=== PATIENT | male | born 1935 | race Asian ===

== ENCOUNTER 2017-11-06 16:39 | Emergency (ER) | payer OTHER ==
[~2017-11-06] VITALS: Ht 170.2 cm; Wt 77.7 kg
[2017-11-06 18:14] LABS: BASOPHIL % 0.1 % (0-2); PLATELET COUNT 202 x10^3mcL (130-400); RED CELL DISTRIBUTION WIDTH 13.8 % (11.5-14.5)
[2017-11-06 18:17] LABS: CALCIUM 8.7 mg/dL (8.5-10.1); CARBON DIOXIDE 28.1 mmol/L (21-32); CHLORIDE SERUM 104 mmol/L (98-107); CREATININE SERUM 0.9 mg/dL (0.7-1.3); GLUCOSE SERUM 109 mg/dL (74-106); POTASSIUM SERUM 3.8 mmol/L (3.5-5.1); SODIUM SERUM 140 mmol/L (136-145)
[2017-11-06 18:22] LABS: ALBUMIN 3.2 g/dL (3.4-5.0); ALKALINE PHOSPHATASE 59 U/L (46-116); ALT/SGPT 28 U/L (16-63); AST/SGOT 24 U/L (15-37); BILIRUBIN TOTAL 0.95 mg/dL (0.20-1.00); TOTAL PROTEIN, SERUM 7.2 g/dL (6.4-8.2)
[2017-11-06 19:03] VITALS: BP 123/72
== END 2017-11-06 19:03 | disposition home or self-care (01) ==
LOC: ED 16:39
PROVIDERS: Emergency Medicine
DX: L03.113 Cellulitis of right upper limb (principal); I10 Essential (primary) hypertension; J45.909 Unspecified asthma, uncomplicated
CPT/HCPCS: 90714; J2543

== ENCOUNTER 2018-06-30 16:51 | Emergency (ER) | payer OTHER ==
[~2018-06-30] VITALS: Ht 170.2 cm; Wt 78.0 kg
[2018-06-30 17:03] VITALS: Ht 170.2 cm; Wt 78.0 kg
[2018-06-30 20:55] LABS: BASOPHIL % 0.3 % (0-2); PLATELET COUNT 200 x10^3mcL (130-400); RED CELL DISTRIBUTION WIDTH 12.5 % (11.5-14.5)
[2018-06-30 21:01] LABS: CALCIUM 8.5 mg/dL (8.5-10.1); CARBON DIOXIDE 30.7 mmol/L (21-32); CHLORIDE SERUM 104 mmol/L (98-107); CREATININE SERUM 1.2 mg/dL (0.7-1.3); GLUCOSE SERUM 106 mg/dL (74-106); POTASSIUM SERUM 3.4 mmol/L (3.5-5.1); SODIUM SERUM 141 mmol/L (136-145)
[2018-06-30 21:16] LABS: ALKALINE PHOSPHATASE 63 U/L (46-116); ALT/SGPT 20 U/L (16-63); AST/SGOT 21 U/L (15-37); TOTAL PROTEIN, SERUM 7.6 g/dL (6.4-8.2)
[2018-06-30 21:19] LABS: ALBUMIN 3.2 g/dL (3.4-5.0)
[2018-06-30 21:55] VITALS: BP 136/81
== END 2018-06-30 21:55 | disposition home or self-care (01) ==
LOC: ED 16:51
PROVIDERS: Emergency Medicine
DX: L03.115 Cellulitis of right lower limb (principal); J45.909 Unspecified asthma, uncomplicated; I10 Essential (primary) hypertension
CPT/HCPCS: J2543; Q0092

== ENCOUNTER 2018-07-08 19:22 | Inpatient (IN) | payer OTHER ==
[~2018-07-08] VITALS: Ht 170.2 cm; Wt 78.6 kg
--- NOTE | 2018-07-08 20:40 | NUR ---
PT TO ED FOR EVAL OF CELLULITIS TO R LOWER EXTREMITY. PT WAS SEEN LAST WEEK.FOR SAME COMPLAINT AND DID NOT FOLLOW UP PMD. PER DAUGHTER LOWER EXTREMITY HAS BECOME WORSE WITH BLOOD FILLED BLISTER AT [facility] OF REDNESS. NO TRAUMA OR INJURY. SKIN WARM AND PAIFUL TO TOUCH. PT AWAKE AND ALERT. BREATHING EVEN UNLABORED. NO DISTRESS.
[2018-07-08 20:54] LABS: BASOPHIL % 0.5 % (0-2); PLATELET COUNT 218 x10^3mcL (130-400); RED CELL DISTRIBUTION WIDTH 13.4 % (11.5-14.5)
--- NOTE | 2018-07-08 21:00 | NUR ---
Pt has presented for eval of R lower leg pain and swelling; family sts pt had been seen here last week, was instructed to f/u PMD, but pt was unable to; pt has been seen by provider, orders rec'd
[2018-07-08 21:03] LABS: CALCIUM 8.6 mg/dL (8.5-10.1); CARBON DIOXIDE 30.2 mmol/L (21-32); CHLORIDE SERUM 106 mmol/L (98-107); CREATININE SERUM 1.1 mg/dL (0.7-1.3); GLUCOSE SERUM 110 mg/dL (74-106); POTASSIUM SERUM 3.9 mmol/L (3.5-5.1); SODIUM SERUM 142 mmol/L (136-145)
[2018-07-08 21:05] LABS: ALBUMIN 3.4 g/dL (3.4-5.0); ALKALINE PHOSPHATASE 70 U/L (46-116); ALT/SGPT 13 U/L (16-63); AST/SGOT 22 U/L (15-37); BILIRUBIN TOTAL 0.39 mg/dL (0.20-1.00); TOTAL PROTEIN, SERUM 7.8 g/dL (6.4-8.2)
--- NOTE | 2018-07-08 21:39 | NUR ---
Labs drawn/sent; IV access initiated, and IV fluids infusing well, US completed. Waiting on further eval
[2018-07-08] MEDS ORDERED: LASIX40 MG PO (22:11)
[2018-07-08] MEDS ORDERED: SPIRIVA18 MC1 HHN (22:12)
[2018-07-08] MEDS ORDERED: SYMBICORT1 AE3 (22:13)
--- NOTE | 2018-07-08 22:14 | NUR ---
Admit pending; family updated regarding admit
[2018-07-08 22:16] LABS: CHOLESTEROL/HDL RATIO 3.1; MAGNESIUM 2.4 mg/dL (1.8-2.4); PHOSPHOROUS 3.2 mg/dL (2.5-4.9)
[2018-07-08 22:20] LABS: T3 TOTAL 1.39 ng/mL
[2018-07-08 22:26] LABS: FREE T4 0.88 ng/dL (0.76-1.46); FREE THYROXINE INDEX 2.8 ug/dL (1.4-4.5); T4(THYROXINE) 9.1 ug/dL (4.7-13.3)
--- NOTE | 2018-07-08 22:40 | NUR ---
FLOOR NURSE REQUESTED PT TO GO TO FLOOR, FAMILY MEMBER ACCOMAPANING; PT WENT TO FLOOR WITH NS AND ZOSYN INFUSING; TRANSPORTED BY EMT
--- NOTE | 2018-07-08 22:50 | NUR ---
RECEIVED PT FROM ED VIA [facility], CAME IN DUE TO RLE WOUND AND SWELLING. PER PT'S DAUGHTER, PT WAS PRESCRIBED W/ ORAL [employer]TIBIOT[employer] BUT WAS NOT WORKING. AAOX4. DENIES HEADACHE/DIZZINESS. ABLE TO FOLLOW COMMANDS. NO SOB NOTED, LUNG SOUNDS CTA. DENIES CHEST PAIN/PRESSURE. DENIES ABDOMINAL DISCOMFORT. C/O 5/10 RLE PAIN. W/ BLISTER IN THE MIDDLE OF THE REDDENED AREA ON RLE. RLE IS WARM TO TOUCH. IV SITE ON THE LFA IS PATENT AND INTACT, RECEIVED PT FROM ED W/ ZOSYN ONGOING. SIDE RAILS UPX2. CALL LIGHT ON REACH. DAUGHTER AT BEDSIDE. PRIMARY NURSE DAMASO AT BEDSIDE FOR CONTINUITY OF CARE.
[2018-07-08 22:59] VITALS: BP 144/76
[2018-07-08 23:05] VITALS: Ht 170.2 cm; Wt 78.6 kg
[2018-07-09] VITALS (7 sets, daily range): BP systolic 117–154; BP diastolic 57–75
--- NOTE | 2018-07-09 03:00 | NUR ---
ROUNDS MADE, PT ASLEEP AND APPEARS COMFORTABLE, BREATHING EVEN AND UNLABORED ON ROOM AIR, IVF INFUSING WELL, NO DISTRESS NOTED, WILL KEEP TO MONITOR.
[2018-07-09 03:53] LABS: microscopic required? NO
[2018-07-09 04:22] LABS: urine erythrocyte NEGATIVE (NEGATIVE)
[2018-07-09 04:36] LABS: AMPHETAMINE QUAL UR NONE DETECTED (See below)
--- NOTE | 2018-07-09 06:00 | NUR ---
pt asleep but easily arousable, slept most of night since admitted to the unit, ivf infusing well, rle still noted with discoloration, non blanching erythema and blister noted, fall precaution in place, no distress noted, will keep to monitor.
[2018-07-09 07:16] LABS: BASOPHIL % 0.6 % (0-2); PLATELET COUNT 188 x10^3mcL (130-400); RED CELL DISTRIBUTION WIDTH 13.6 % (11.5-14.5)
--- NOTE | 2018-07-09 07:24 | NUR ---
BEDSIDE HANDOFF REPORT DONE WITH CYNTHIA-RN, ALL QUESTIONS ANSWERED AND CONCERNS ADDRESSED.
[2018-07-09 08:15] LABS: CALCIUM 8.2 mg/dL (8.5-10.1); CHLORIDE SERUM 108 mmol/L (98-107); GLUCOSE SERUM 94 mg/dL (74-106); MAGNESIUM 2.2 mg/dL (1.8-2.4); PHOSPHOROUS 3.6 mg/dL (2.5-4.9); POTASSIUM SERUM 3.7 mmol/L (3.5-5.1); SODIUM SERUM 142 mmol/L (136-145)
--- NOTE | 2018-07-09 09:45 | NUR ---
PASSED MORNING MEDICATIONS, PT TOLERATED WELL. PT AWAKE, ALERT, ORIENTEDx4, DENIES ANY PAIN TO RLE. RLE ECCHYMOTIC SITE MARKED WITH SKIN MARKER, SANGUINEOUS BLISTER PRESENT TO AFFECTED SITE, INTACT. NO DRAINAGE. COMFORT PROVIDED, DAUGHTER AT BEDSIDE. WILL CONTINUE TO MONITOR.
--- NOTE | 2018-07-09 18:30 | NUR ---
PT AWAKE, ALERT, ORIENTED. PT DENIES PAIN, EFFORTLESS BREATHING ON ROOM AIR. IV INFUSING WELL TO LFA#20. RLE ELEVATED ON WEDGE, +1 EDEMA. SENSATION INTACT, SKIN WARM TO TOUCH. BED IN LOWEST POSITION, CALL LIGHT WITHIN REACH.
--- NOTE | 2018-07-09 20:00 | NUR ---
PATIENT RECEIVED IN BED VIA BEDSIDE HANDS OFF WITH OUT GOING NURSE MICHOACANO. PATIENT IS AWAKE ALERT AND ORIENTED X4, SPEECH CLEAR, FAMILY AT BEDSIDE INTERPRETING, PATIENT ONLY SPEAKS MANDARIN, TOTALLY NO ISRAELI, ABLE TO GESTURE NEEDS. BREATHING EVEN AND UNLABORED BS CLEAR DIMINISHED BASES, FOUND ON ROOM AIR SAT 93% ,DENIES SOB. DENIED CHEST PAIN HR=84BPM, NON TELE, MED/SURG PATIENT. HEPLOCK TO LFA PATENT AND INTACT SITE NO REDNESS. PATIENT IS AMBULATORY WITH STEADY GAIT, NEEDS ANTICIPATED.PATIENT WITH REDNESS TO RLE AND A SMALL OPEN BLISTER NO DISCHARGE NOTED , SITE WITH MARKATION HAS NOT GONE BEYOND IT, TRACE EDEMA NOTED, ELEVATED BLE ON A WEDGE TO DECREASE SWELLING, PATIENT STATED MILD PAIN TO RLE,RATED AT 2/10, INFORMED ABOUT PAIN MANAGEMENT. PATIENT INFORMED ABOUT POC THIS SHIFT. CALL LIGHT PLACED IN REACH. WILL CONITNUE TO MONITOR.
--- NOTE | 2018-07-09 22:20 | NUR ---
SCHEDULED MEDS ADMINISTERED THIS TIME, PATIENT INFORMED ABOUT MED ACTION AND PURPOSE PRIOR TO ADMINISTERATION. TOOK PILLS WELL.WAS SITTING DURING ADMINISTRATION.OFFERED NO COMPLAINTS THIS TIME. WILL CONTINUE TO MONITOR.
--- NOTE | 2018-07-10 00:30 | NUR ---
PATIENT ROUNDS MADE THIS TIME, PATIENT SLEEPING COMFORTABLY, AWAKEN WHEN NAME CALLED, PATIENT OFFERED NO COMPLAINTS. HEPLOCK INTACT. WILL CONTINUE TO MONITOR. SAFETY PREC. MAINTAINED. WILL CONTINUE TO MONITOR.
--- NOTE | 2018-07-10 02:48 | NUR ---
SCHEDULED ABX HANGED THIS TIME, FLUSHED HEPLOCK SITE WITHOUT RESISTANCE ENCOUNTERED. PATIENT IN NO DISTRESS. WILL CONTINUE TO MONITOR.
[2018-07-10 05:51] VITALS: BP 128/63
[2018-07-10 06:05] LABS: BASOPHIL % 0.3 % (0-2); PLATELET COUNT 189 x10^3mcL (130-400); RED CELL DISTRIBUTION WIDTH 13.3 % (11.5-14.5)
[2018-07-10 06:36] LABS: CALCIUM 8.2 mg/dL (8.5-10.1); CARBON DIOXIDE 28.3 mmol/L (21-32); CHLORIDE SERUM 107 mmol/L (98-107); GLUCOSE SERUM 91 mg/dL (74-106); POTASSIUM SERUM 3.5 mmol/L (3.5-5.1); SODIUM SERUM 141 mmol/L (136-145)
--- NOTE | 2018-07-10 06:56 | NUR ---
PATIENT SLEPT GOOD AND RESTED WELL DURING THE SHIFT, NO COMPLAINTS MADE, COMPLAINED OF DULL BEARBLE PAIN TO RT LEG OFFERED PAIN MEDS BUT REFUSED STATED CAN HANDLE IT, INFORMED ABOUT PAIN MANAGEMENT. BLE ELEVATED ON A WEDGE.SAFETY PRECAUTIONS MAINTAINED. WILL CONTINUE TO MONITOR.
--- NOTE | 2018-07-10 08:00 | NUR ---
RECEIVED PATEINT A/A/OX4; CLEAR KHMER SPEECH. DENIED CHEST PAIN. NO SOB. O2 SAT 91% ON RA. PATIENT AMBULATED IN ROOM FREQUENTLY. RLE REDNESS SUBSIDING. TRACE EDEMA TO TO BLE, R>L. BLISTER TO MIDDLE OF CELLULITUIS WOUND TO RLA. DENIED PAIN. IVHL'D TO [facility] W/ 20G ONC. CALL LIGHT IN REACH.
[2018-07-10 10:00] VITALS: BP 143/62
--- NOTE | 2018-07-10 14:00 | NUR ---
WALKED W/ PHYSICAL THERAPIST IN [address].
--- NOTE | 2018-07-10 14:08 | NUR ---
PATIENT NOT IN ROOM FOR HHN TX. WILL ATTEMPT AGAIN AT A LATER TIME.
[2018-07-10 17:42] VITALS: BP 149/82
--- NOTE | 2018-07-10 19:00 | NUR ---
REDNESS/SWELLING TO RLE SUBSIDING. DENIED PAINNOW. ARNOLDO ENDORSED CARE TO [facility] NURSE.
--- NOTE | 2018-07-10 19:30 | NUR ---
RECEIVED PT AWAKE, ALERT AND ORIENTED X4, NO DISTRESS NOTED. PT DENIES ANY PAIN AT THIS TIME. PT IS MED/SURG, DENIES ANY CHEST DISCOMFORT. ON RA, BREATHING IS E/U, DENIES RESP. DISCOMFORT. PT NOTED TO HAVE BLE PITTING EDEMA, +2 TO RLE AND TRACE TO LLE. PT DENIES PAIN TO RLE, AREA IS MARKED FOR CELLULITIS, APPEARS TO BE MINIMALLY REDDENED/FLUSHED. ENCOURAGING PT ELEVATE EXTREMITY; B/L PEDAL PULSES PRESENT. CIRCULATION,SENSATION AND MOTOR INTACT TO BLE. IV TO LFA SALINE LOCKED, PATENT AND INTACT. ALL SAFETY MEASURES MAINTAINED. CALL LIGHT IN REACH. FAMILY AT BEDSIDE. WILL CONTINUE TO MONITOR.
[2018-07-10 21:14] VITALS: BP 136/76
--- NOTE | 2018-07-10 23:10 | NUR ---
PT RESTING WITH EYES CLOSED, EASILY AROUSABLE. NO PAIN OR DISCOMFORT NOTED. BREATHING E/U. RLE ELEVATED. SAFETY PRECAUTIONS MAINTAINED. CALL LIGHT IN REACH. WILL CONTINUE TO MONITOR.
--- NOTE | 2018-07-11 05:06 | NUR ---
PT RESTED DURING THE NIGHT WITH NO DISTRESS OR ACUTE CHANGES IN CONDITION. NO C/O PAIN. IV TO LFA REMAINS PATENT AND INTACT. ALL SAFETY MEASURES MAINTAINED. CALL LIGHT IN REACH. WILL ENDORSE CARE TO AM NURSE AND CONTINUE TO MONITOR.
[2018-07-11 05:46] VITALS: BP 158/76
[2018-07-11 06:01] LABS: BASOPHIL % 0.4 % (0-2); PLATELET COUNT 200 x10^3mcL (130-400); RED CELL DISTRIBUTION WIDTH 13.6 % (11.5-14.5)
[2018-07-11 06:29] LABS: CALCIUM 8.6 mg/dL (8.5-10.1); CARBON DIOXIDE 30.3 mmol/L (21-32); CHLORIDE SERUM 105 mmol/L (98-107); CREATININE SERUM 1.1 mg/dL (0.7-1.3); GLUCOSE SERUM 95 mg/dL (74-106); POTASSIUM SERUM 3.7 mmol/L (3.5-5.1); SODIUM SERUM 142 mmol/L (136-145)
--- NOTE | 2018-07-11 08:00 | NUR ---
A/A/OX4. DENIED PAIN. NO RESP DSITRESS. O2 SAT 94% ON RA. DENIED CHEST PAIN. CELLULITIS TO RLE SUBSIDING. BLISTER IN MIDDLE OF WOUND UNBLOKEN. AMBULATED ON STEADY GAIT. IVHL'D TO [facility]. DENIED PAIN. CALL LIGHT IN REACH.
[2018-07-11 09:28] VITALS: BP 151/76
[2018-07-11] MEDS ORDERED: LAC PO (12:06)
[2018-07-11] MEDS ORDERED: CLINDAMYCIN300 M1 PO (12:06)
[2018-07-11 13:59] VITALS: BP 151/76
--- NOTE | 2018-07-11 15:30 | NUR ---
D/C TO HOME W/ HOME HEALTH PHYSICAL THERAPY PER ORDER. INSTRUCTION GIVEN TO PATIENT AND HIS DAUGHTER, WILBER LEROY. IV D/C'D. PHOTO TO RLE TAKEN AND FILED. CONDITION STABLE.
== END 2018-07-11 15:40 | disposition home health service (06) | DRG 383 ==
LOC: ED 19:22 → MU 21:20
PROVIDERS: Emergency Medicine; Internal Medicine; ADMIT Family Medicine
DX: L03.115 Cellulitis of right lower limb (principal); J44.9 Chronic obstructive pulmonary disease, unspecified; I10 Essential (primary) hypertension; E78.5 Hyperlipidemia, unspecified
CPT/HCPCS: 83880; 84439; J2543; J3370; J3490; J7620; J7626; Q0092

== ENCOUNTER 2019-06-29 21:34 | Inpatient (IN) | payer OTHER ==
[~2019-06-29] VITALS: Ht 172.7 cm; Wt 73.5 kg
[~2019-06-29 21:34] MED LIST: CLINDAMYCIN300 M1 PO; LAC PO; LASIX40 MG PO; SPIRIVA18 MC1 HHN; SYMBICORT1 AE3 INH
[2019-06-29 22:12] VITALS: Ht 172.7 cm; Wt 73.5 kg
[2019-06-29 23:31] LABS: BASOPHIL % 0 % (0-2); PLATELET COUNT 191 x10^3mcL (130-400); RED CELL DISTRIBUTION WIDTH 13.2 % (11.5-14.5)
[2019-06-29 23:50] LABS: CALCIUM 9.3 mg/dL (8.5-10.1); CARBON DIOXIDE 28.9 mmol/L (21-32); CHLORIDE SERUM 104 mmol/L (98-107); GLUCOSE SERUM 101 mg/dL (74-106); POTASSIUM SERUM 3.5 mmol/L (3.5-5.1); SODIUM SERUM 141 mmol/L (136-145)
[2019-06-29 23:55] LABS: ALBUMIN 3.8 g/dL (3.4-5.0); ALKALINE PHOSPHATASE 72 U/L (46-116); ALT/SGPT 24 U/L (16-63); AST/SGOT 26 U/L (15-37); BILIRUBIN TOTAL 0.6 mg/dL (0.20-1.00); TOTAL PROTEIN, SERUM 7.9 g/dL (6.4-8.2)
[2019-06-30] VITALS (7 sets, daily range): BP systolic 104–134; BP diastolic 51–62
[2019-06-30 07:13] LABS: CALCIUM 8.8 mg/dL (8.5-10.1); CARBON DIOXIDE 24.8 mmol/L (21-32); CHLORIDE SERUM 102 mmol/L (98-107); CREATININE SERUM 1.3 mg/dL (0.7-1.3); GLUCOSE SERUM 172 mg/dL (74-106); MAGNESIUM 2.1 mg/dL (1.8-2.4); PHOSPHOROUS 2.9 mg/dL (2.5-4.9); PLATELET COUNT 179 x10^3mcL (130-400); POTASSIUM SERUM 3.3 mmol/L (3.5-5.1); RED CELL DISTRIBUTION WIDTH 13.4 % (11.5-14.5); SODIUM SERUM 138 mmol/L (136-145)
[2019-06-30 07:39] LABS: BASOPHIL % 0 % (0-2)
[2019-06-30 08:05] LABS: urine erythrocyte NEGATIVE (NEGATIVE)
[2019-06-30 08:13] LABS: microscopic required? YES
[2019-07-01 06:36] VITALS: BP 112/49
[2019-07-01 06:38] LABS: PLATELET COUNT 178 x10^3mcL (130-400); RED CELL DISTRIBUTION WIDTH 13.4 % (11.5-14.5)
[2019-07-01 06:49] LABS: CALCIUM 9.1 mg/dL (8.5-10.1); CARBON DIOXIDE 25.4 mmol/L (21-32); CHLORIDE SERUM 105 mmol/L (98-107); CREATININE SERUM 1.1 mg/dL (0.7-1.3); GLUCOSE SERUM 136 mg/dL (74-106); MAGNESIUM 2.4 mg/dL (1.8-2.4); PHOSPHOROUS 2.8 mg/dL (2.5-4.9); POTASSIUM SERUM 3.6 mmol/L (3.5-5.1); SODIUM SERUM 140 mmol/L (136-145)
[2019-07-01 09:56] VITALS: BP 118/55
[2019-07-01 10:25] LABS: BAND NEUTROPHIL 2 % (0-10); BASOPHIL 0 % (0-2); MONOCYTE 1 % (0-7); SEGMENTED NEUTROPHILS 97 % (37-75)
[2019-07-01 10:26] LABS: rbc morphology (normal/abnorm) ABNORMAL (NORMAL)
[2019-07-01 10:27] LABS: PLATELET MORPHOLOGY PLATELETS NORMAL
[2019-07-01 13:00] VITALS: BP 143/66
[2019-07-01 21:27] VITALS: BP 129/78
[2019-07-02 05:45] VITALS: BP 110/53
[2019-07-02 08:47] VITALS: BP 128/71
[2019-07-02 11:58] LABS: CALCIUM 8.5 mg/dL (8.5-10.1); CARBON DIOXIDE 28.3 mmol/L (21-32); CHLORIDE SERUM 108 mmol/L (98-107); GLUCOSE SERUM 113 mg/dL (74-106); POTASSIUM SERUM 3.7 mmol/L (3.5-5.1); SODIUM SERUM 143 mmol/L (136-145)
[2019-07-02 12:46] VITALS: BP 124/58
[2019-07-02 16:42] VITALS: BP 121/55
[2019-07-02 20:09] VITALS: BP 138/62
[2019-07-03 05:29] VITALS: BP 110/48
[2019-07-03 06:19] LABS: PLATELET COUNT 172 x10^3mcL (130-400); RED CELL DISTRIBUTION WIDTH 13.5 % (11.5-14.5)
[2019-07-03 06:23] LABS: BASOPHIL % 0 % (0-2)
[2019-07-03 06:35] LABS: CALCIUM 7.9 mg/dL (8.5-10.1); CHLORIDE SERUM 109 mmol/L (98-107); CREATININE SERUM 0.9 mg/dL (0.7-1.3); GLUCOSE SERUM 118 mg/dL (74-106); POTASSIUM SERUM 3.9 mmol/L (3.5-5.1); SODIUM SERUM 142 mmol/L (136-145)
[2019-07-03 07:56] VITALS: BP 136/59
[2019-07-03 10:41] VITALS: BP 136/59
[2019-07-03] MEDS ORDERED: BREO ELLIPTA1 PO1 IH (11:02)
[2019-07-03] MEDS ORDERED: MONTELUKAST SOD10 M1 PO (11:02)
[2019-07-03] MEDS ORDERED: LEVAQUIN500 M1 PO (11:03)
[2019-07-03 12:20] VITALS: BP 136/68
== END 2019-07-03 13:19 | disposition home or self-care (01) | DRG 140 ==
LOC: ED 21:34 → DU 06-30 01:48 → MU 07-01 10:29
PROVIDERS: Emergency Medicine; Family Medicine; ADMIT Student in an Organized Health Care Education/Training Program
DX: J44.1 Chronic obstructive pulmonary disease with (acute) exacerbation (principal); R65.10 Systemic inflammatory response syndrome (SIRS) of non-infectious origin without acute organ dysfunction; E87.6 Hypokalemia; I10 Essential (primary) hypertension; Z87.891 Personal history of nicotine dependence; Z98.49 Cataract extraction status, unspecified eye
CPT/HCPCS: 83880; 87804; 90732; 97110-GP; 97116-GP; G0378; J0456; J1644; J2543; J2920; J2930; J3370; J3490; J7030; J7050; J7512; J7613; J7620; J7633; Q0092